=== PATIENT | female | born 1930 | race Caucasian/White ===

== ENCOUNTER 2020-10-05 06:46 | Day surgery (SDC) | payer OTHER ==
[~2020-10-05] VITALS: Ht 165.1 cm; Wt 76.2 kg
[~2020-10-05 06:46] MED LIST: ATOR40TA52 PO; FENO200C PO; HYDR2.5L TOP; LEVO112T4 PO; LOSA-69 PO; METO25TA93 PO; RALO60TA13 PO
[2020-10-05] MEDS ORDERED: LIDOCAINE VISCOUS 2% 15ML UD MT ONE (07:30)
[2020-10-05] MEDS ORDERED: fentaNYL CITRATE 100 MCG/2 ML VL IV ONE (07:30)
[2020-10-05] MEDS ORDERED: diphenhdrAMINE HCL 50 MG/1 ML VL IV ONE (07:30)
[2020-10-05] MEDS ORDERED: MIDAZOLAM HCL 2MG/2ML 2ml VIAL (1mg/ml) IV ONE (07:30)
== END 2020-10-05 09:59 | disposition home or self-care (01) ==
LOC: CATH 06:46
PROVIDERS: ATTEND Internal Medicine Cardiovascular Disease
DX: I08.3 Combined rheumatic disorders of mitral, aortic and tricuspid valves (principal); I12.9 Hypertensive chronic kidney disease with stage 1 through stage 4 chronic kidney disease, or unspecified chronic kidney disease; N18.9 Chronic kidney disease, unspecified; E78.5 Hyperlipidemia, unspecified; E03.9 Hypothyroidism, unspecified; Z85.3 Personal history of malignant neoplasm of breast; Z88.1 Allergy status to other antibiotic agents; Z87.891 Personal history of nicotine dependence; Z20.822 Contact with and (suspected) exposure to COVID-19; Z98.890 Other specified postprocedural states; Z79.899 Other long term (current) drug therapy
CPT/HCPCS: 93312; J2250; J3010; U0003; 99152

== ENCOUNTER 2021-06-06 07:20 | Inpatient (IN) | payer OTHER ==
[2021-06-06] VITALS (12 sets, daily range): BP systolic 108–156; BP diastolic 32–86
[~2021-06-06] VITALS: Ht 165.1 cm; Wt 77.0 kg
[~2021-06-06 07:20] MED LIST changes: +ASPI1TAB91 PO; +CALC-460 PO; +CLOP75TA70 PO; -HYDR2.5L TOP
[2021-06-06] MEDS ORDERED: LIDOCAINE 2%HCL (LOCAL ANESTH.) INJ 10ml MDV ONE (07:44)
[2021-06-06] MEDS ORDERED: IODIXANOL 320MG/ML 100ML BTL IV ONE ×2 (07:45→08:33)
[2021-06-06] MEDS ORDERED: ANGIOMAX 250 MG VIAL IV ONE (08:00)
[2021-06-06] MEDS ORDERED: MIDAZOLAM HCL 2MG/2ML 2ml VIAL (1mg/ml) ONE (08:00)
[2021-06-06] MEDS ORDERED: fentaNYL CITRATE 100 MCG/2 ML VL ONE (08:00)
[2021-06-06] MEDS ORDERED: SODIUM CHL 0.9% 0 ML ONE (08:01)
[2021-06-06] MEDS ORDERED: ACETAMINOPHEN 325 MG TAB PO PRN (11:45)
[2021-06-06] MEDS ORDERED: ONDANSETRON HCL 4 MG/2 ML VIAL IV PRN (11:45)
[2021-06-06] MEDS ORDERED: SODIUM CHLORIDE 0.9% 1,000 ML IV ONE (14:45)
[2021-06-06 16:55] LABS: Basophils # (auto) 0 10 ^3/uL (0-0.2); Basophils % (auto) 0.6 % (0.0-2.0); Eosinophils # (auto) 0.1 10 ^3/uL (0-0.8); Eosinophils % (auto) 1.2 % (0.0-7.0); Hemoglobin 11.7 g/dL (12.2-16.2); Lymphocytes # (auto) 1.5 10 ^3/uL (0.4-5.4); Mean Corpuscular Hemoglobin 30.5 pg (28.0-32.0); Mean Corpuscular Hgb Conc. 34.3 g/dL (32.0-36.0); Mean Corpuscular Volume 88.8 fL (80.0-100.0); Monocytes # (auto) 0.6 10 ^3/uL (0-1.3); Neutrophils # (auto) 3.3 10 ^3/uL (1.6-8.6); Neutrophils % (auto) 60.2 % (37.0-80.0); Nucleated Red Blood Cells % 0.1 %; Red Blood Cells 3.83 10^6/uL (4.0-5.20); Red Cell Distribution Width 13.9 % (11.8-14.3); White Blood Cell 5.4 10^3/uL (4.4-10.8)
[2021-06-06 17:16] LABS: BUN/Creatinine Ratio 14.3; Calcium 8.7 mg/dL (8.5-10.1); Potassium 3.8 mmol/L (3.5-5.1)
[2021-06-06 17:21] LABS: INR 1.07 (0.9-1.15)
[2021-06-06] MEDS ORDERED: CALCIUM CARBONATE VITAMIN D PO SCH (18:00)
[2021-06-06] MEDS ORDERED: CLOPIDOGREL BISULFATE PO SCH (18:00)
[2021-06-06] MEDS ORDERED: CALCIUM W/VIT D (600MG/400IU) TAB PO SCH (18:00)
[2021-06-06] MEDS ORDERED: PATIENTS OWN MEDICATION (Atorvastatin Calcium 1 TAB) PO SCH (18:00)
[2021-06-06] MEDS ORDERED: PATIENTS OWN MEDICATION (Metoprolol Succinate (Metoprolol Succinate Er) 1 TAB) PO SCH (18:00)
[2021-06-06] MEDS ORDERED: CLOPIDOGREL BISULFATE 75 MG TAB PO SCH (18:00)
[2021-06-06] MEDS ORDERED: METOPROLOL SUCCINATE XL 50 MG TAB PO SCH ×2 (18:00)
[2021-06-06] MEDS ORDERED: ASPirin-EC 81 mg tab PO SCH (18:00)
[2021-06-06] MEDS ORDERED: ATORVASTATIN 20 MG TAB PO SCH (22:00)
[2021-06-07 05:00] VITALS: BP 127/38
[2021-06-07] MEDS ORDERED: RALOXIFENE HCL 60 MG TAB PO SCH (07:00)
[2021-06-07] MEDS ORDERED: LOSARTAN POTASSIUM 50 MG TAB PO SCH (07:00)
[2021-06-07] MEDS ORDERED: FENOFIBRATE 200 MG PO SCH (07:00)
[2021-06-07] MEDS ORDERED: LEVOTHYROXINE SODIUM 112 MCG TAB PO SCH (07:00)
[2021-06-07 08:43] VITALS: BP 132/73
[2021-06-07 13:23] VITALS: BP 145/50
[2021-06-07 13:41] VITALS: BP 127/38
== END 2021-06-07 14:42 | disposition home or self-care (01) | DRG 286 ==
LOC: CATH 07:20 → OVERFLOW 11:41 → TELE-EAST 13:43
PROVIDERS: ADMIT Hospitalist; ATTEND Internal Medicine Cardiovascular Disease
PROC: 4A023N8 Measurement of Cardiac Sampling and Pressure, Bilateral, Percutaneous Approach (ICD-10-PCS; principal; 2021-06-06)
PROC: B211YZZ Fluoroscopy of Multiple Coronary Arteries using Other Contrast (ICD-10-PCS; 2021-06-06)
PROC: B215YZZ Fluoroscopy of Left Heart using Other Contrast (ICD-10-PCS; 2021-06-06)
DX: I13.0 Hypertensive heart and chronic kidney disease with heart failure and stage 1 through stage 4 chronic kidney disease, or unspecified chronic kidney disease (principal); I50.33 Acute on chronic diastolic (congestive) heart failure; I35.0 Nonrheumatic aortic (valve) stenosis; I25.10 Atherosclerotic heart disease of native coronary artery without angina pectoris; E78.5 Hyperlipidemia, unspecified; I65.29 Occlusion and stenosis of unspecified carotid artery; N18.9 Chronic kidney disease, unspecified; E78.00 Pure hypercholesterolemia, unspecified; Z20.822 Contact with and (suspected) exposure to COVID-19; Z88.2 Allergy status to sulfonamides; Z82.49 Family history of ischemic heart disease and other diseases of the circulatory system; Z85.3 Personal history of malignant neoplasm of breast
CPT/HCPCS: 36415; 80048; 85025; 85610; 93460; 99152; 99153; C1751; G0378; J2001; J2250; Q9967